=== PATIENT | female | born 1965 | race African-American/Black ===

== ENCOUNTER → 2016-11-10 | Emergency (ER) | payer OTHER ==
[~2016-11-10] MED LIST: IBUPROFEN 600 MG TABLET (FP) PO ONE
[2016-11-10 10:16] VITALS: PULSE 69; TEMP 98; BMI 28.3
--- NOTE | 2016-11-10 10:33 | PDOC ---
History of Present Illness - General History Source: Patient Exam Limitations: No Limitations <Majo Mckeon - Last Filed: 11/10/16 11:25> - General History Source: Patient Exam Limitations: No Limitations - History of Present Illness Initial Comments: 11/10/16 10:52 The patient is a 51 year old female, with significant past medical history of asthma, who presents today complaining of right leg pain, and back pain that radiates to the chest starting this morning. The patient explains that she was walking her kids to the bus stop when she felt a sharp pain shoot up the back of her right leg. This leg pain spontaneously resolved and has not reoccurred since. She reports back pain that radiates to the medial chest. This pain is dull, 5/10 in severity, and exacerbated secondary to movement and taking a deep breath.She also notes cramping in her left leg, but states that she has been doing a lot of walking recently. She states that she did not take any medicine for pain relief. She notes that she had an MRI performed yesterday for a cyst found in her left upper arm. No cough or SOB. No palpitations No swollen legs. No recent travel. No abdominal pain. No neck pain. No fever, chills, nausea, vomiting. PMHx: Asthma. The patient was once told that she had COPD, but is noncompliant with medications because she does not want to take them Allergies: none reported Surgical Hx: cholecystectomy Social Hx: No alcohol or drug use PCP- Dr. Phylicia Hogan <Елена Jones - Last Filed: 11/10/16 12:20> - General Chief Complaint: Pain Stated Complaint: CHEST PAIN Time Seen by Provider: 11/10/16 10:18 Past History - Past Medical History Anemia: No Asthma: Yes Cancer: No Cardiac Disorders: No CVA: No COPD: No CHF: No Dementia: No Diabetes: No GI Disorders: No Disorders: No HTN: No Hypercholesterolemia: No Liver Disease: No Seizures: No Thyroid Disease: No - Surgical History Abdominal Surgery: Yes Appendectomy: No Cardiac Surgery: No Cholecystectomy: Yes Lung Surgery: No Neurologic Surgery: No Orthopedic Surgery: No - Psycho/Social/Smoking Cessation Hx Anxiety: No Suicidal Ideation: No Smoking Status: No Smoking History: Never smoked Have you smoked in the past 12 months: No Number of Cigarettes Smoked Daily: 0 Hx Alcohol Use: No Drug/Substance Use Hx: No Substance Use Type: None <Majo Mckeon - Last Filed: 11/10/16 11:25> <Елена Jones - Last Filed: 11/10/16 12:20> - Past Medical History Allergies/Adverse Reactions: Allergies Allergy/AdvReac Type Severity Reaction Status Date / Time No Known Allergies Allergy Verified 11/10/16 10:17 Review of Systems - Review of Systems Able to Perform ROS?: Yes Comments:: 11/10/16 10:53 GENERAL/CONSTITUTIONAL: No: fever, chills, weakness, loss of appetite. HEAD, EYES, EARS, NOSE AND THROAT: No: change in vision, ear pain, discharge, sore throat, throat swelling. CARDIOVASCULAR: No: lightheadedness, palpitations, syncope RESPIRATORY: No: cough, shortness of breath, wheezing, hemoptysis, stridor. GASTROINTESTINAL: No: nausea, vomiting, abdominal cramping, diarrhea, rectal bleeding, constipation. GENITOURINARY: No: dysuria, hematuria, frequency, urgency, flank pain. MUSCULOSKELETAL: +back pain that radiates to the chest, +pain in the back of the left leg, +cramping in the right leg. No: neck pain, joint pain, muscle swelling or pain SKIN: No: lesions, pallor, rash or easy bruising. NEUROLOGIC: No: headache, vertigo, paresthesias, weakness ENDOCRINE: No: unexplained weight gain or loss HEMATOLOGIC/LYMPHATIC: No: anemia, easy bleeding, swelling nodes <Елена Jones - Last Filed: 11/10/16 12:20> *Physical Exam - Vital Signs Last Vital Signs Temp Pulse Resp BP Pulse Ox 98 F 69 18 120/86 99 11/10/16 10:14 11/10/16 10:14 11/10/16 10:14 11/10/16 10:14 11/10/16 10:14 <Majo Mckeon - Last Filed: 11/10/16 11:25> - Vital Signs Last Vital Signs Temp Pulse Resp BP Pulse Ox 98 F 69 18 120/86 99 11/10/16 10:14 11/10/16 10:14 11/10/16 10:14 11/10/16 10:14 11/10/16 10:14 - Physical Exam Comments: 11/10/16 10:54 GENERAL: The patient is in no acute distress. HEAD: Normal with no signs of trauma. EYES: PERRLA, EOMI, sclera anicteric, conjunctiva clear. ENT: Ears normal, nares patent, oropharynx clear without exudates. Moist mucous membranes. NECK: Normal range of motion, supple without lymphadenopathy, JVD, or masses. LUNGS: Breath sounds equal, clear to auscultation bilaterally. No wheezes, and no crackles. HEART:Regular rate and rhythm, normal S1 and S2 without murmur, rub or gallop. ABDOMEN: Soft, nontender, normoactive bowel sounds. No guarding, no rebound. EXTREMITIES: Normal range of motion, no edema. No clubbing or cyanosis. No erythema, or tenderness. NEUROLOGICAL: Cranial nerves II through XII grossly intact. Normal speech. No focal neurological deficits. MUSCULOSKELETAL: Back nontender to palpation, no CVA tenderness SKIN: Warm, Dry, normal turgor, no rashes or lesions noted. <Елена Jones - Last Filed: 11/10/16 12:20> Heart Score/ECG Review #1 ECG reviewed & interpreted by me at: 10:32 General ECG Interpretation: Sinus Rhythm, Normal Rate, Normal Intervals, No acute ischemic changes <Majo Mckeon - Last Filed: 11/10/16 11:25> ED Treatment Course - LABORATORY CBC & Chemistry Diagram: 11/10/16 10:35 11/10/16 10:35 <Majo Mckeon - Last Filed: 11/10/16 11:25> - LABORATORY CBC & Chemistry Diagram: 11/10/16 10:35 11/10/16 10:35 - RADIOLOGY Radiograph Interpretation: 11/10/16 12:19 EXAM#: TYPE/EXAM: RESULT: [id number] RAD/CHEST - PA Chest pain. Single PA view of the chest compared with October 17, 2015. Shallow inspiration. The lungs are well aerated. No evidence of pneumonia, CHF , pleural effusion or pneumothorax. No bulky hilar adenopathy is seen. Intact visualized osseous structures. Impression. No evidence of active pulmonary disease. Reported By: Brian Everett MD 11/10/16 1130 <Елена Jones - Last Filed: 11/10/16 12:20> Medical Decision Making - Medical Decision Making A portion of this note was documented by scribe services under my direction. I have reviewed the details of the note, within reason, and agree with the documentation with the following case summary and management plan written by me. Nursing documentation reviewed and incorporated into medical decision making 11/10/16 11:14 This patient is a 51 yo F with a history of Asthma who presents to the ER with multiple complaints She is concerned about chest and back pain which began today after she developed right leg pain while walking She then developed back pain and chest pain She is unable to describe the pain When asked if it was sharp, she states "not too sharp" She denies shortness of breath She denies palpitations She has had no cough or wheezing No chest or back trauma No h/o exertional chest pain or cardiac disease no history of HTN, HLD, Tobacco use Pt states she had an MRI yesterday Does not know the results Laboratory Tests 11/10/16 10:35 WBC 4.0 D Hgb 13.9 D Hct 42.3 Plt Count 278 Neutrophils % 49.3 Lymphocytes % 39.9 11/10/16 11:25 Laboratory Tests 11/10/16 11/10/16 10:35 10:35 D-Dimer < 200 BUN 11 D Creatinine 0.8 D Creatine Kinase 117 Troponin I < 0.02 11/10/16 11:35 Upon re assessment pt states she had neck pain, thoracic spine pain No chest pain No nausea or diaphoresis Will do: BP both arms Will give motrin for pain I do not have access to this patients MRI 11/10/16 11:36 <Majo Mckeon - Last Filed: 11/10/16 11:25> - Medical Decision Making 11/10/16 10:58 Dr. Phylicia Das's was paged over head at 10:31am. Dr. Das'lulú returned the call at 10:35am and spoke with Dr. Mckeon regarding the patient's care <Елена Jones - Last Filed: 11/10/16 12:20> *DC/Admit/Observation/Transfer - Discharge Dispostion Admit: No <Majo Mckeon - Last Filed: 11/10/16 11:25> - Attestations Scribe Attestion: 11/10/16 10:55 Documentation prepared by SAMEER Cavazos, acting as medical administrative specialist for Majo Mckeon MD. <Елена Jones - Last Filed: 11/10/16 12:20> Diagnosis at time of Disposition: Back pain Qualifiers: Back pain location: thoracic back pain Chronicity: acute Back pain laterality: midline Qualified Code(s): M54.6 - Pain in thoracic spine Chest pain Qualifiers: Chest pain type: unspecified Qualified Code(s): R07.9 - Chest pain, unspecified - Discharge Dispostion Disposition: HOME - Referrals Referrals: Phylicia Hogan MD [Primary Care Provider] - - Patient Instructions Printed Discharge Instructions: DI for Atypical Chest Pain, DI for Chest Pain, DI for Thoracic Back Pain Additional Instructions: MS. [place] Thank you for coming in to the ER today Please take medications as prescribed Please monitor yourself for new symptoms If you have any new concerning symptoms, please come in to the ER today Please follow up with your Primary care physician
[2016-11-10 10:53] LABS: BASOPHIL 1.3 % (0-2.0); EOSINOPHIL 2.3 % (0-4.5); MCH 28.1 pg (25.7-33.7); MCHC 32.9 g/dl (32.0-36.0); MEAN CELL VOLUME 85.2 fl (80-96); MEAN PLT VOLUME 6.8 fl (7.5-11.1); NEUTROPHILS 49.3 % (42.8-82.8); PLATELET COUNT 278 K/MM3 (134-434); RDW 12.7 % (11.6-15.6)
--- NOTE | 2016-11-10 10:58 | EKG ---
Test Reason : Blood Pressure : / mmHG Vent. Rate : 072 BPM Atrial Rate : 072 BPM P-R Int : 136 ms QRS Dur : 068 ms QT Int : 390 ms P-R-T Axes : 050 032 032 degrees QTc Int : 427 ms NORMAL SINUS RHYTHM NORMAL ECG WHEN COMPARED WITH ECG OF 28-FEB-2013 09:25, NO SIGNIFICANT CHANGE WAS FOUND Confirmed by MARCIE WRAY MD ([id number]) on 11/10/2016 10:58:10 AM Referred By: Confirmed By:MARCIE WRAY MD
[2016-11-10 11:18] LABS: ALBUMIN 4.5 g/dl (3.4-5.0); ANION GAP 8 (8-16); BILIRUBIN,TOTAL 0.5 mg/dL (0.2-1.0); CALCIUM 9.4 mg/dL (8.5-10.1); CO2 31 mmol/L (21-32); COCKROFT - GAULT 91.3665; CREATININE 0.8 mg/dL (0.55-1.02); GLUCOSE,RANDOM 96 mg/dL (74-106); SGOT/AST 15 U/L (15-37); SGPT/ALT 18 U/L (12-78)
[2016-11-10 11:21] LABS: ALK PHOS 75 U/L (45-117); TOT PROT 8.2 g/dl (6.4-8.2); TROPONIN I < 0.02 ng/ml (0.00-0.05)
[2016-11-10 11:43] VITALS: BP 102/65
== END | disposition home or self-care (01) ==
LOC: JER 10:07
DX: M54.6 Pain in thoracic spine (principal); R07.9 Chest pain, unspecified; M54.2 Cervicalgia
CPT/HCPCS: 36415; 71010-TC; 80053; 82550; 84484; 85025; 85379; 93005; 93010; 99282-25

== ENCOUNTER 2018-07-25 10:30 | Emergency (ER) | payer SELFPAY ==
--- NOTE | 2018-07-25 10:49 | PDOC ---
History of Present Illness - General Chief Complaint: Chest Pain Stated Complaint: CHEST PAIN Time Seen by Provider: 07/25/18 10:47 - History of Present Illness Initial Comments: 07/25/18 10:48 53 year old woman with a history of HTN and ?COPD? who presents with 3 days of 5 /10 chest pain that only occurs when leaning forward, nonradiating and not associated with nausea, vomiting, diaphoresis 07/25/18 11:39 Past History - Past Medical History Allergies/Adverse Reactions: Allergies Allergy/AdvReac Type Severity Reaction Status Date / Time No Known Allergies Allergy Verified 07/25/18 10:59 Anemia: No Asthma: Yes Cancer: No Cardiac Disorders: No CVA: No COPD: No CHF: No Dementia: No Diabetes: No GI Disorders: No Disorders: No HTN: No Hypercholesterolemia: No Liver Disease: No Seizures: No Thyroid Disease: No - Surgical History Abdominal Surgery: Yes Appendectomy: No Cardiac Surgery: No Cholecystectomy: Yes Lung Surgery: No Neurologic Surgery: No Orthopedic Surgery: No - Suicide/Smoking/Psychosocial Hx Smoking Status: No Smoking History: Never smoked Have you smoked in the past 12 months: No Number of Cigarettes Smoked Daily: 0 Hx Alcohol Use: No Drug/Substance Use Hx: No Substance Use Type: None ED Treatment Course - LABORATORY CBC & Chemistry Diagram: 07/25/18 11:21 07/25/18 11:21 *DC/Admit/Observation/Transfer Diagnosis at time of Disposition: Atypical chest pain - Discharge Dispostion Disposition: HOME Condition at time of disposition: Stable Decision to Admit order: No - Referrals - Patient Instructions Printed Discharge Instructions: DI for Atypical Chest Pain Additional Instructions: You were seen in the ED for complaints of chest pain. In the ED you were evaluated with labwork and imaging. Your results were unremarkable. There does not appear to be an acute need for immediate hospitalization. You are advised to follow up with your Primary Care Physician within 1 week. Return to the ED immediately if you experience worsening chest pain, nausea, sweating, lightheadedness, shortness of breath or loss of consciousness. - Post Discharge Activity
[2018-07-25 10:59] VITALS: BP 138/82; PULSE 68; TEMP 99.2; BMI 26.4
[2018-07-25 11:38] LABS: BASO % 0.4 % (0-2.0); EOS % 0.7 % (0-4.5); HEMATOCRIT 36.9 % (32.4-45.2); HEMOGLOBIN 12.7 GM/dL (10.7-15.3); LYMPH % 40.1 % (8-40); MCH 28.8 pg (25.7-33.7); MCHC 34.3 g/dl (32.0-36.0); MEAN CELL VOLUME 83.9 fl (80-96); MEAN PLT VOLUME 6.7 fl (7.5-11.1); MONO % 7.4 % (3.8-10.2); NEUT % 51.4 % (42.8-82.8); PLATELET COUNT 277 K/MM3 (134-434); RDW 12.6 % (11.6-15.6); WHITE BLOOD COUNT 3.4 K/mm3 (4.0-10.0)
--- NOTE | 2018-07-25 11:46 | PDOC ---
Attending Attestation - Resident Resident Name: Louisa Maya - ED Attending Attestation I have performed the following: I have examined & evaluated the patient, The case was reviewed & discussed with the resident, I agree w/resident's findings & plan, Exceptions are as noted - HPI HPI: 07/25/18 11:27 53-year-old female with past medical history of asthma presents with atypical chest pain. The patient reported approximately 2 days ago noticing this reproducible anterior chest pain reproduced intermittently with leaning forward or stretching her arms back. He will last for a few seconds and resolved on its own. No exertional component. Denies short of breath. Denies radiation. Denies prior cardiac history. Denies smoking history. 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 Patient is unsure if she strained her chest. Because she is soon to be traveling to [place] for vacation , patient wanted checked out. - Physicial Exam PE: 07/25/18 12:13 GENERAL: Awake, alert, and fully oriented, in no acute distress HEAD: No signs of trauma EYES: EOMI, sclera anicteric, conjunctiva clear ENT: Auricles normal inspection, hearing grossly normal, nares patent, Moist mucosa NECK: Normal ROM, supple LUNGS: Breath sounds equal, clear to auscultation bilaterally. No wheezes, and no crackles HEART: Regular rate and rhythm, normal S1 and S2, no murmurs, rubs or gallops. Reproducible chest pain with stretching of her sternum/chest ABDOMEN: Soft, nontender, No guarding, no rebound. No masses EXTREMITIES: Normal range of motion, no edema. No clubbing or cyanosis. No cords, erythema, or tenderness NEUROLOGICAL: Cranial nerves II through XII grossly intact. Normal speech, normal gait SKIN: Warm, Dry, normal turgor, no rashes or lesions noted. - Medical Decision Making 07/25/18 12:14 Vital Signs Temp Pulse Resp BP Pulse Ox 99.2 F 68 16 138/82 100 07/25/18 10:52 07/25/18 10:52 07/25/18 10:52 07/25/18 10:52 07/25/18 10:52 This is very atypical chest pain. Patient's EKG is normal reassuring. Symptoms going for 2 days. Patient declines any pain medication time. Patient is negative troponin, the patient follow-up as an outpatient with cardiology. I suspect this is likely muscle skeletal. Heart Score/ECG Review #1 ECG reviewed & interpreted by me at: 10:40 07/25/18 12:11 NSR 61, no std/marvin, normal axis, normal intervals, QTC 396 msec
[2018-07-25 12:02] LABS: ALK PHOS 68 U/L (45-117); ANION GAP 6 MMOL/L (8-16); BILIRUBIN,TOTAL 0.3 mg/dL (0.2-1); BLOOD UREA NITROGEN 9 mg/dL (7-18); CHLORIDE 102 mmol/L (98-107); CO2 31 mmol/L (21-32); CREATININE 0.7 mg/dL (0.55-1.3); GLUCOSE,RANDOM 90 mg/dL (74-106); POTASSIUM 3.9 mmol/L (3.5-5.1); SGOT/AST 16 U/L (15-37); SGPT/ALT 18 U/L (13-61); SODIUM 139 mmol/L (136-145); TOT PROT 7.5 g/dl (6.4-8.2)
--- NOTE | 2018-07-25 12:08 | EKG ---
Test Reason : Blood Pressure : / mmHG Vent. Rate : 061 BPM Atrial Rate : 061 BPM P-R Int : 150 ms QRS Dur : 064 ms QT Int : 394 ms P-R-T Axes : 048 035 039 degrees QTc Int : 396 ms NORMAL SINUS RHYTHM NORMAL ECG WHEN COMPARED WITH ECG OF 10-NOV-2016 10:13, NO SIGNIFICANT CHANGE WAS FOUND Confirmed by ASHLEY DENISE MD ([id number]) on 07/25/2018 12:08:22 PM Referred By: Confirmed By:ASHLEY DENISE MD
== END 2018-07-25 12:24 | disposition home or self-care (01) ==
LOC: JER 10:30
DX: R07.89 Other chest pain (principal)
CPT/HCPCS: 36415; 80053; 84484; 85025; 93005; 93010; 99282-25

== ENCOUNTER → 2018-10-17 | Day surgery (SDC) | payer OTHER ==
--- NOTE | 2018-10-19 13:42 | PATH ---
Cytology Non-Gynecological Report Patient Name: MARCIA SCHMIDT [facility]. Rec. #: [id number] /Age/Gender: 1965 (Age: 53) / F Account: [id number] Location: RADIOLOGY INTER Taken: 10/17/2018 Received: 10/17/2018 Reported: 10/19/2018 Physicians: Ken Hayes M.D. Specimen(s) Received LEFT THYROID FNA Clinical History Left thyroid nodule Final Diagnosis THYROID, LEFT, FINE NEEDLE ASPIRATION: SATISFACTORY FOR EVALUATION BETHESDA CLASS II: BENIGN SCANT SMALL FOLLICULAR CELLS AND ABUNDANT COLLOID PRESENT. Comment: Findings may represent a benign colloid nodule. Due to limited cellularity of follicular cells, if ultrasound findings are suspicious, repeat biopsy is recommended. Clinical correlation is necessary. Electronically Signed Jose J Verdin M.D. Gross Description Received are eight direct smears, four of which are air-dried and Diff-Quik stained, and four of which are alcohol fixed and Pap stained. Also received is 20 ml of bloody formalin from which one cellblock is prepared.
== END | disposition home or self-care (01) ==
LOC: JRADIR 09:33
PROVIDERS: ATTEND Internal Medicine
PROC: 0G9G3ZX Drainage of Left Thyroid Gland Lobe, Percutaneous Approach, Diagnostic (ICD-10-PCS; principal; 2018-10-17)
DX: E04.1 Nontoxic single thyroid nodule (principal)
CPT/HCPCS: 71046-TC-FY; 76942; 88173; 88305-TC

== ENCOUNTER → 2022-02-19 | Day surgery (SDC) | payer BC | END | disposition home or self-care (01) | LOC: JRADIR 10:20 | PROVIDERS: ATTEND Internal Medicine | PROC: 0G9G3ZX Drainage of Left Thyroid Gland Lobe, Percutaneous Approach, Diagnostic (ICD-10-PCS; principal; 2022-02-19) | DX: E04.1 Nontoxic single thyroid nodule (principal) | CPT/HCPCS: 10005; 76942; 88173; 88305-TC ==

== ENCOUNTER 2022-07-25 07:47 | Emergency (ER) | payer OTHER, BC ==
[2022-07-25 08:02] VITALS: BP 155/88; PULSE 86; RESP 18; TEMP 98; BMI 28.3
[2022-07-25] MEDS ORDERED: DIPHTH,PERTUSS(ACELL),TET 0.5 ML DISP.SYRIN IM ONE ×2 (09:33→09:45)
[2022-07-25 10:19] LABS: BASO % 0.5 % (0-2.0); EOS % 0.4 % (0-4.5); HEMOGLOBIN 13.1 GM/dL (10.7-15.3); LYMPH % 31.5 % (8-40); MCH 27.8 pg (25.7-33.7); MCHC 33.7 g/dl (32.0-36.0); MEAN CELL VOLUME 82.6 fl (80-96); MEAN PLT VOLUME 6.5 fl (7.5-11.1); MONO % 7.4 % (3.8-10.2); NEUT % 60.2 % (42.8-82.8); PLATELET COUNT 297 10^3/uL (134-434); RBC 4.72 M/mm3 (3.60-5.2); RDW 13.1 % (11.6-15.6); WHITE BLOOD COUNT 3.8 K/mm3 (4.0-10.0)
[2022-07-25 10:33] LABS: CALCIUM 9.6 mg/dL (8.5-10.1)
[2022-07-25 10:34] LABS: ALBUMIN 4.3 g/dl (3.4-5.0); BLOOD UREA NITROGEN 13.5 mg/dL (7-18)
[2022-07-25 10:36] LABS: CREATININE 0.6 mg/dL (0.55-1.3); URIC ACID 6.2 mg/dL (2.6-7.2)
[2022-07-25 10:37] LABS: PHOSPHOROUS 3.3 mg/dL (2.5-4.9)
[2022-07-25 10:38] LABS: TOT PROT 7.8 g/dl (6.4-8.2)
[2022-07-25 10:39] LABS: BILIRUBIN,TOTAL 0.3 mg/dL (0.2-1)
[2022-07-25 11:29] LABS: HIV INTERPRETATION NEGATIVE (NEGATIVE)
== END 2022-07-25 10:14 | disposition home or self-care (01) ==
LOC: JERFT 07:47 → JER 07:47 → JERFT 10:14
PROC: 3E0234Z Introduction of Serum, Toxoid and Vaccine into Muscle, Percutaneous Approach (ICD-10-PCS; principal; 2022-07-25)
DX: Z77.21 Contact with and (suspected) exposure to potentially hazardous body fluids (principal)
CPT/HCPCS: 36415; 80053; 82465; 82977; 83615; 84100; 84478; 84550; 85025; 86704; 86803; 87340; 87389; 87517; 90715; 99283-25

== ENCOUNTER 2023-02-17 07:18 | Emergency (ER) | payer OTHER, BC ==
[2023-02-17 07:50] VITALS: BP 144/86; PULSE 85; RESP 17; TEMP 98.3; BMI 28.3
== END 2023-02-17 12:07 | disposition home or self-care (01) ==
LOC: JER 07:18 → JERFT 07:18
DX: M25.512 Pain in left shoulder (principal); S63.501A Unspecified sprain of right wrist, initial encounter; M25.531 Pain in right wrist; W01.0XXA Fall on same level from slipping, tripping and stumbling without subsequent striking against object, initial encounter; Y93.01 Activity, walking, marching and hiking
CPT/HCPCS: 73030-TC-LT-FY; 73110-TC-RT-FY; 73130-TC-RT-FY; 99283-25